=== PATIENT | male | born 1935 | race Caucasian/White ===

== ENCOUNTER 2022-10-23 23:33 | Emergency (ER) | payer MEDICARE, OTHER, SELFPAY ==
[2022-10-23 23:41] VITALS: PULSE 63; RESP 22; O2SAT 100
--- NOTE | 2022-10-23 23:42 | DI.RAD.S_ITS ---
PROCEDURE: XR CHEST 1V INDICATIONS: chest pain TECHNIQUE: One view of the chest was acquired. COMPARISON: None. FINDINGS: Surgical changes and devices: None. Lungs and pleura: There are scattered patchy indistinct airspace opacities bilaterally. No pleural effusions or pneumothorax. Mediastinum: Mediastinal contours appear normal. Heart size is normal. Bones and chest wall: No suspicious bony lesions. Overlying soft tissues appear unremarkable. IMPRESSION: 1. Scattered indistinct airspace opacities bilaterally are nonspecific but suggestive of pneumonia. Dictated by: Alonso Lan M.D. on 10/24/2022 at 1:01 Approved by: Alonso Lan M.D. on 10/24/2022 at 1:02
[2022-10-23 23:43] VITALS: BP 201/95; PULSE 62; RESP 18; O2SAT 99
[2022-10-23 23:44] VITALS: BP 201/95; PULSE 65; RESP 16; TEMP 36.8; O2SAT 100; BMI 25.8
[2022-10-23 23:53] LABS: INR 0.9 (0.9-1.3)
--- NOTE | 2022-10-23 23:53 | ED.CHESTPAIN ---
HPI - Chest Pain General Chief Complaint: Chest Pain Stated Complaint: Chest pain Time Seen by Provider: 10/23/22 23:53 Source: patient Mode of arrival: Ambulatory Limitations: no limitations History of Present Illness HPI narrative: 87-year-old male nonsmoker with noncontributory medical history presents with his in the chief complaint of short episodes stabbing retrosternal chest pain over the course of the day. Denies any obvious provocation but seems to think that getting up and moving around helps his symptoms. He denies associated symptoms or cardiac equivalent such as dizziness, weakness or lightheadedness. He denies nausea, vomiting or unexplained diaphoresis. He states he exercises every morning and denies any exertional symptoms or exercise intolerance. He denies unexplained diaphoresis or fatigue. He is had no recent travel, injuries, history of blood clot or cancer. He denies any association with eating or drinking. He is had no change in medications or diet. He is asymptomatic on arrival Related Data Previous Rx's Medication Instructions Recorded pantoprazole 40 mg tablet,delayed 40 mg PO DAILY #30 tabs 10/24/22 release (Protonix) Review of Systems Review of Systems Narrative: GENERAL: Denies chills, fatigue, malaise, fever, sweats. HEENT: Denies sinus pain, ear pain, sore throat, difficulty swallowing, dizziness. RESPIRATORY: Denies dyspnea, cough, wheezing, hemoptysis, sputum. CARDIOVASCULAR: See HPI GASTROINTESTINAL: Denies nausea, vomiting, abdominal pain, diarrhea, constipation, melena. : Denies dysuria, frequency, incontinence, hematuria, urinary retention. MUSCULOSKELETAL: denies weakness, joint pain, or bony pain SKIN: Denies rash, skin lesions, or other NEUROLOGIC: Denies weakness, headache, numbness, change in speech, confusion, seizures, incoordination. PSYCHIATRIC: No concerning psychosocial issues. 12 point review of systems is negative except for those stated above Patient History Social History Smoking Status: Never smoker Smoking Status: Never smoker Substance Use Type: does not use Exam Narrative Exam Narrative: GENERAL: [87] year old patient appears stated age. Well-developed patient, in mild distress. HEAD: Atraumatic. Normocephalic. EYES: Pupils equal round and reactive. Extraocular motions intact. No scleral icterus. No injection or drainage. ENT: Nose without bleeding, purulent drainage. Throat without erythema, tonsillar hypertrophy or exudate. Airway patent. NECK: Trachea midline. Non tender CARDIOVASCULAR: Regular rate and rhythm without murmurs, gallops, or rubs. RESPIRATORY: Clear to auscultation. Breath sounds equal bilaterally. No wheezes, rales, or rhonchi. GASTROINTESTINAL: Abdomen soft, non-tender, nondistended. EXTREMITIES: No edema or joint tenderness. BACK: Nontender without deformity or crepitance. No flank tenderness. NEURO: AOx3. SKIN: No rash or erythema of visible areas Initial Vital Signs Initial Vital Signs: Vital Signs Pulse Rate 63 10/23/22 23:41 Respiratory Rate 22 10/23/22 23:41 Pulse Oximetry 100 10/23/22 23:41 Course Orders Ordered: ED Orders 10/23/22 23:40 Complete Blood Count AUTO DIFF Stat Comprehensive Metabolic Panel Stat Lipase Stat Magnesium Stat Partial Thromboplastin Time Stat Prothrombin Time INR Stat Troponin & CK Cardiac Panel Stat 10/23/22 23:42 XR chest 1V Stat EKG-12 Lead Stat 10/24/22 02:38 D Dimer Stat 10/24/22 02:48 Troponin & CK Cardiac Panel Stat 10/24/22 03:16 CT angio chest PE protocol Stat Discontinued Medications Aspirin (Aspirin 81 Mg Chew Tab) 324 mg PO NOW ONE Stop: 10/23/22 23:43 Last Admin: 10/23/22 23:47 Dose: Not Given Documented By: PREMA Vital Signs Vital signs: Vital Signs - 8 hr 10/23/22 23:44 10/23/22 23:41 10/23/22 23:43 Temperature 98.2 F Pulse Rate 65 63 Respiratory Rate 16 22 Blood Pressure 201/95 H 201/95 H Pulse Oximetry 100 100 Oxygen Delivery Method Room Air 10/23/22 23:43 10/24/22 00:00 10/24/22 00:00 Temperature 97.7 F Pulse Rate 62 61 Respiratory Rate 18 23 Blood Pressure 165/78 H Pulse Oximetry 99 99 Oxygen Delivery Method 10/24/22 02:37 10/24/22 06:18 Temperature Pulse Rate 57 L 54 L Respiratory Rate 14 16 Blood Pressure 178/83 H 156/74 H Pulse Oximetry 97 Oxygen Delivery Method Room Air MDM - Chest Pain Lab Data Result diagrams: 10/23/22 23:40 10/23/22 23:40 Labs: Lab Results 10/23/22 10/23/22 10/23/22 Range/Units 23:40 23:40 23:40 WBC 9.2 (4.5-11.0) X10^3/uL RBC 4.69 (4.5-5.9) X10^6/uL Hgb 14.6 (13.5-17.5) g/dL Hct 43.0 (41-53) % MCV 91.7 (80-100) fL MCH 31.1 (26-34) PG MCHC 33.9 (30-36) % RDW 13.8 (11.6-14.8) % Plt Count 223 (150-400) X10^3/uL Neut % (Auto) 47.4 L (50-75) % Lymph % (Auto) 38.9 (25-40) % Kinney % (Auto) 8.3 (3-14) % Eos % (Auto) 3.8 (2-4) % Baso % (Auto) 1.6 (0-2) % Neut # (Auto) 4400 (5437-7616) /uL Lymph # (Auto) 3600 (2624-1505) /uL Kinney # (Auto) 800 (0-900) /uL Eos # (Auto) 400 (0-450) /uL Baso # (Auto) 100 (0-100) /uL PT 10.0 L (10.1-12.7) SECONDS INR 0.9 (0.9-1.3) APTT 30 (26-36) SECONDS D-Dimer (<500) ng/ml Sodium 138 (137-145) mmol/L Potassium 4.2 (3.4-5.1) mmol/L Chloride 100 (98-107) mmol/L Carbon Dioxide 31 (22-32) mmol/L BUN 21 H (9-20) mg/dL Creatinine 1.31 H (0.66-1.25) mg/dL Estimated GFR 53 L (>60) mL/min BUN/Creatinine Ratio 16.0 (6-22) Glucose 103 (80-110) mg/dL Calcium 9.5 (8.4-10.2) mg/dL Magnesium 2.3 (1.6-2.3) mg/dL Total Bilirubin 0.4 (0.2-1.3) mg/dL AST 26 (17-59) IU/L ALT 19 (<50) IU/L Alkaline Phosphatase 104 (38-126) U/L Total Creatine Kinase 129 (55-170) U/L CK-MB (CK-2) 1.84 (<2.37) ng/mL CK-MB (CK-2) Rel Index 1.4 L (1.5-5.0) % Troponin I < 0.012 (0.01-0.034) ng/mL Total Protein 7.4 (6.3-8.2) g/dL Albumin 4.2 (3.5-5.0) g/dL Globulin 3.2 (1.7-4.1) g/dL Albumin/Globulin Ratio 1.3 (1.0-2.8) Lipase 120 (23-300) U/L 10/23/22 10/24/22 Range/Units 23:40 02:48 WBC (4.5-11.0) X10^3/uL RBC (4.5-5.9) X10^6/uL Hgb (13.5-17.5) g/dL Hct (41-53) % MCV (80-100) fL MCH (26-34) PG MCHC (30-36) % RDW (11.6-14.8) % Plt Count (150-400) X10^3/uL Neut % (Auto) (50-75) % Lymph % (Auto) (25-40) % Kinney % (Auto) (3-14) % Eos % (Auto) (2-4) % Baso % (Auto) (0-2) % Neut # (Auto) (3744-8370) /uL Lymph # (Auto) (9352-9993) /uL Kinney # (Auto) (0-900) /uL Eos # (Auto) (0-450) /uL Baso # (Auto) (0-100) /uL PT (10.1-12.7) SECONDS INR (0.9-1.3) APTT (26-36) SECONDS D-Dimer 1146 H (<500) ng/ml Sodium (137-145) mmol/L Potassium (3.4-5.1) mmol/L Chloride (98-107) mmol/L Carbon Dioxide (22-32) mmol/L BUN (9-20) mg/dL Creatinine (0.66-1.25) mg/dL Estimated GFR (>60) mL/min BUN/Creatinine Ratio (6-22) Glucose (80-110) mg/dL Calcium (8.4-10.2) mg/dL Magnesium (1.6-2.3) mg/dL Total Bilirubin (0.2-1.3) mg/dL AST (17-59) IU/L ALT (<50) IU/L Alkaline Phosphatase (38-126) U/L Total Creatine Kinase 121 (55-170) U/L CK-MB (CK-2) 1.53 (<2.37) ng/mL CK-MB (CK-2) Rel Index 1.3 L (1.5-5.0) % Troponin I < 0.012 (0.01-0.034) ng/mL Total Protein (6.3-8.2) g/dL Albumin (3.5-5.0) g/dL Globulin (1.7-4.1) g/dL Albumin/Globulin Ratio (1.0-2.8) Lipase (23-300) U/L Imaging Data CT scan - chest: Radiologist's Impression: No PE, PTX, or pneumonia MDM Narrative Medical decision making narrative: Multiple causes of chest pain considered including IN, PE, pneumothorax, pneumonia, aortic dissection, and pleurisy. Patient reports no radiation, no diaphoresis, no provocation with exertion, and no vomiting Patient's symptoms improved over duration of stay with above-stated therapies. Findings and discharge diagnosis discussed with patient/family followed by verbalization of understanding Return precautions discussed with patient/family whom verbalize understanding. Discharge Plan Departure Patient Disposition: Home Clinical Impression: Atypical chest pain Instructions: DI for Atypical Chest Pain Activity Restrictions/Additional Instructions: *You have been diagnosed with [ atypical chest pain. As we discussed your history and physical exam are very reassuring and labs, imaging and EKG would suggest against emergent conditions such as heart attack, blood clot or pneumonia.] *What to do: *Please continue to take your regular medications as directed. [ New medication prescriptions sent to your pharmacy: [ ] [x ] New medication written as a paper prescription [ ] No new medications given *Please follow up with your primary care provider in 2-3 days, call for an appointment. Let them know you were seen in the Emergency Department and that we ask that you be seen in follow up. We will electronically transmit a record of today's note if your PCP is in our system *If you do not have a primary care provider please contact the [facility] Resource line at [phone]. They will ask some questions about your medical history and help get you set up with a doctor in the community. *Return to Emergency Department if you should have any new, worsening or concerning symptoms, such as [fever greater than 101 F, shaking chills, worsening pain, persistent vomiting or other bothersome symptoms] Prescriptions: New pantoprazole [Protonix] 40 mg tablet,delayed release (DR/EC) 40 mg PO DAILY Qty: 30 0RF
[2022-10-23 23:56] LABS: Add Manual Diff / Slide Review NO; Basophils Absolute Auto 100 /uL (0-100); Basophils Percent Auto 1.6 % (0-2); Eosinophils Absolute Auto 400 /uL (0-450); Eosinophils Percent Auto 3.8 % (2-4); Hemoglobin 14.6 g/dL (13.5-17.5); Lymphocytes Absolute Auto 3600 /uL (1100-4500); Lymphocytes Percent Auto 38.9 % (25-40); Mean Corpuscular HGB Conc 33.9 % (30-36); Mean Corpuscular Hemoglobin 31.1 PG (26-34); Mean Corpuscular Volume 91.7 fL (80-100); Monocytes Absolute Auto 800 /uL (0-900); Monocytes Percent Auto 8.3 % (3-14); Neutrophils Absolute Auto 4400 /uL (1500-7000); Neutrophils Percent Auto 47.4 % (50-75); PTT Partial Thromboplastin Tim 30 SECONDS (26-36); Platelet Count 223 X10^3/uL (150-400); Red Blood Cell Count 4.69 X10^6/uL (4.5-5.9); Red Cell Distribution Width 13.8 % (11.6-14.8); White Blood Cell Count 9.2 X10^3/uL (4.5-11.0)
[2022-10-23 23:57] LABS: Alanine Aminotransferase 19 IU/L (<50); Albumin 4.2 g/dL (3.5-5.0); Albumin Globulin Ratio 1.3 (1.0-2.8); Alkaline Phosphatase 104 U/L (38-126); Aspartate Aminotransferase 26 IU/L (17-59); Bilirubin Total 0.4 mg/dL (0.2-1.3); Blood Urea Nitrogen 21 mg/dL (9-20); Calcium 9.5 mg/dL (8.4-10.2); Carbon Dioxide 31 mmol/L (22-32); Chloride 100 mmol/L (98-107); Creatine Kinase 129 U/L (55-170); Estimated Glomerular Filt Rate 53 mL/min (>60); Globulin 3.2 g/dL (1.7-4.1); Glucose 103 mg/dL (80-110); Lipase 120 U/L (23-300); Magnesium 2.3 mg/dL (1.6-2.3); Potassium 4.2 mmol/L (3.4-5.1); Sodium 138 mmol/L (137-145); Total Protein 7.4 g/dL (6.3-8.2)
[2022-10-24] VITALS: BP 165/78; PULSE 61; RESP 23; TEMP 36.5; O2SAT 99
[2022-10-24 00:08] LABS: Troponin I < 0.012 ng/mL (0.01-0.034)
[2022-10-24 00:12] LABS: CKMB % Relative Index 1.4 % (1.5-5.0); Creatine Kinase MB 1.84 ng/mL (<2.37); HEMOLYSIS 27 (0-50)
[2022-10-24 02:37] VITALS: BP 178/83; PULSE 57; RESP 14
[2022-10-24 02:58] LABS: D Dimer 1146 ng/ml (<500)
[2022-10-24 03:07] LABS: Creatine Kinase 121 U/L (55-170)
--- NOTE | 2022-10-24 03:16 | DI.CT.S_ITS ---
PROCEDURE: CT ANGIO CHEST PE PROTOCOL INDICATIONS: chest pain, SOB, Critical Dimer TECHNIQUE: After the administration of intravenous contrast, 2 mm thick sections acquired from the pulmonary apices to the posterior costophrenic angles. 3-dimensional maximum intensity projection (MIP) coronal and sagittal reformats were then acquired through the thorax. For radiation dose reduction, the following was used: automated exposure control, adjustment of mA and/or kV according to patient size. COMPARISON: [facility], CR, XR CHEST 1V, 10/23/2022, 23:49. FINDINGS: Image quality: Excellent. Pulmonary arteries: Pulmonary arteries are normal in size, and demonstrate no intraluminal filling defects to suggest central pulmonary embolism. Lungs and pleura: There are numerous pleural nodules/plaques bilaterally; some nodules are calcified. No acute pulmonary opacity. No pleural effusions or pneumothorax. Central and peripheral airways are patent. Mediastinum: Heart size is normal, without pericardial effusion. Mild coronary artery calcification. There are mildly enlarged mediastinal or hilar lymph nodes. For example, there is a 1.0 x 1.4 cm subcarinal lymph node. A 1.3 cm hilar lymph node is identified. Thoracic aorta is normal in caliber and enhancement. There is a small hiatal hernia. There is concentric thickening at the gastroesophageal junction. Bones and chest wall: No suspicious bony lesions. Ribs and thoracic spine appear intact throughout. There is a heterogeneous mass in left thyroid lobe measuring 1.9 cm. No axillary or supraclavicular adenopathy. Abdomen: There is left adrenal thickening. A 0.9 cm left adrenal nodule is present. IMPRESSION: 1. No evidence for pulmonary embolism. 2. There are numerous pleural nodules and plaques bilaterally. Some nodules are calcified. Recommend clinical correlation for asbestos exposure. Cannot rule out pleural neoplasm such as mesothelioma or metastatic disease. If clinically indicated, PET-CT would be helpful. 3. Mild mediastinal lymphadenopathy. 4. A 1.9 cm heterogeneous left thyroid nodule. Recommend thyroid ultrasound for follow-up evaluation. 5. Small hiatal hernia. There is concentric thickening at the gastroesophageal junction. EGD is recommended for follow-up evaluation. 6. Mild coronary artery calcification consistent with coronary artery atherosclerosis. No significant discrepancy with the shift nurse manager radiology preliminary report. The final result was discussed with Dr. Smith. Dictated by: Sofia Oreilly M.D. on 10/24/2022 at 7:46 Approved by: Sofia Oreilly M.D. on 10/24/2022 at 7:57
[2022-10-24 03:19] LABS: Troponin I < 0.012 ng/mL (0.01-0.034)
[2022-10-24 03:22] LABS: CKMB % Relative Index 1.3 % (1.5-5.0); Creatine Kinase MB 1.53 ng/mL (<2.37)
[2022-10-24 06:18] VITALS: BP 156/74; PULSE 54; RESP 16; O2SAT 97
[2022-10-24 07:24] VITALS: BP 175/88; PULSE 75; RESP 16; O2SAT 100
== END 2022-10-24 07:25 | disposition home or self-care (01) ==
PROVIDERS: Emergency Provider Emergency Medicine
DX: R07.89 Other chest pain (principal); Z79.899 Other long term (current) drug therapy
CPT/HCPCS: 36415; 71045; 71275; 80053; 82550; 82553; 83690; 83735; 84484; 85025; 85379; 85610; 85730; 93005; 99284; Q9967

== ENCOUNTER 2023-01-11 09:07 | Emergency (ER) | payer MEDICARE, OTHER, SELFPAY ==
[2023-01-11 09:13] VITALS: BP 160/86; PULSE 68; RESP 16; TEMP 36.9; O2SAT 98; BMI 26.6
--- NOTE | 2023-01-11 09:13 | DI.RAD.S_ITS ---
PROCEDURE: XR KNEE RT 3V INDICATIONS: patella swollen, painful, hit on metal TECHNIQUE: 3 views of the knee were acquired. COMPARISON: None. FINDINGS: Bones: No fractures or dislocations. No suspicious bony lesions. There is mild medial femorotibial joint space narrowing seen, with associated remodeling changes including subchondral sclerosis and osteophyte formation along the jointline. On the sunrise view, there is moderate patellofemoral joint space narrowing seen. Osteophyte formation can be seen along the margins of the patella. Soft tissues: Prepatellar soft tissue swelling is seen. There is a small joint effusion. No suspicious soft tissue calcifications. IMPRESSION: Prepatellar soft tissue swelling with a small joint effusion. Degenerative changes are seen, which are worst involving the patellofemoral joint. If it would be helpful for clinical management decision making, please consider a dedicated, scheduled knee MRI for further evaluation (assuming that there is no contraindication). Dictated by: Dileep Purvis M.D. on 01/11/2023 at 8:33 Approved by: Dileep Purvis M.D. on 01/11/2023 at 8:34
--- NOTE | 2023-01-11 11:30 | ED.LOWEXIN ---
HPI - Extremity Injury (Lower) <Christen Palmer PA-C - Last Filed: 01/11/23 13:05> General Chief Complaint: Extremity Injury, Lower Stated Complaint: foot pain/injury Time Seen by Provider: 01/11/23 11:30 History of Present Illness HPI Narrative: 87-year-old male presents with concern for right knee injury. Patient states that he ran his knee into a metal bar on Thursday. He said it was very painful when it 1st happened but he was able to go about his day and his usual activities he even went for a walk, he states he normally does calisthenics every day and hikes frequently. On Thursday he also felt fine and he did is calisthenic routine which includes jumping up and down multiple times. He and his were driving up to their home locally on Thursday and as he was driving and operating the foot pedals he realized he was having knee pain. Then overnight on Thursday night he started having worsening pain he describes it as a stabbing type pain that is worse when he bends his knee and better when he keeps it straight. He states he is never had any problems with this knee or previous injuries and he just had his physical exam and was told that he has the body of a 57-year-old. He did not do any compression elevation icing or stay off of it after the initial injury. He denies numbness or tingling of the affected extremity, weakness or any other symptoms. Related Data Previous Rx's Medication Instructions Recorded pantoprazole 40 mg tablet,delayed 40 mg PO DAILY #30 tabs 10/24/22 release (Protonix) Review of Systems <Christen Palmer PA-C - Last Filed: 01/11/23 13:05> Review of Systems Narrative: Unremarkable except as noted in the HPI Patient History <Christen Palmer PA-C - Last Filed: 01/11/23 13:05> Social History Smoking Status: Never smoker Smoking Status: Never smoker Substance Use Type: does not use Exam <Christen Palmer PA-C - Last Filed: 01/11/23 13:05> Narrative Exam Narrative: GENERAL: 87 year old patient appears much younger than stated age. Healthy, well-appearing Well-developed patient, in mild distress. HEAD: Atraumatic. Normocephalic. EYES: Pupils equal round and reactive. Extraocular motions intact. No scleral icterus. No injection or drainage. ENT: Nose without bleeding, purulent drainage. Airway patent. NECK: Trachea midline. Non tender CARDIOVASCULAR: Regular rate and rhythm without murmurs, gallops, or rubs. RESPIRATORY: Clear to auscultation. Breath sounds equal bilaterally. No wheezes, rales, or rhonchi. GASTROINTESTINAL: Abdomen , nondistended. EXTREMITIES: Strong pedal pulses. The affected right knee has swelling about the patella and an abrasion on the anterior aspect of the patella without significant erythema or sensitive skin. Patient has increased pain about the patella with active flexion at the knee, but no increase in pain with passive flexion. Anterior and posterior drawer are negative. Medial joint lines are nontender. No other edema or joint tenderness. BACK: Nontender without deformity or crepitance. No flank tenderness. NEURO: AOx3. SKIN: No rash or erythema of visible areas Initial Vital Signs Initial Vital Signs: Vital Signs Temperature 98.4 F 01/11/23 09:13 Pulse Rate 68 01/11/23 09:13 Respiratory Rate 16 01/11/23 09:13 Blood Pressure 160/86 H 01/11/23 09:13 Pulse Oximetry 98 01/11/23 09:13 Oxygen Delivery Method 01/11/23 09:13 <DO Helen Montes Last Filed: 01/11/23 18:41> Initial Vital Signs Initial Vital Signs: Vital Signs Temperature 98.4 F 01/11/23 09:13 Pulse Rate 68 01/11/23 09:13 Respiratory Rate 16 01/11/23 09:13 Blood Pressure 160/86 H 01/11/23 09:13 Pulse Oximetry 98 01/11/23 09:13 Oxygen Delivery Method 01/11/23 09:13 Course <Christen Palmer PA-C - Last Filed: 01/11/23 13:05> Orders Ordered: ED Orders 01/11/23 09:13 XR knee RT 3V Stat Vital Signs Vital signs: Vital Signs - 8 hr 01/11/23 11:39 Pulse Rate 68 Respiratory Rate 18 Blood Pressure 123/74 Pulse Oximetry 99 Oxygen Delivery Method Room Air <DO Helen Montes Last Filed: 01/11/23 18:41> Orders Ordered: ED Orders 01/11/23 09:13 XR knee RT 3V Stat Vital Signs Vital signs: Vital Signs - 8 hr 01/11/23 11:39 Pulse Rate 68 Respiratory Rate 18 Blood Pressure 123/74 Pulse Oximetry 99 Oxygen Delivery Method Room Air MDM - Extremity Injury (Lower) <Christen Palmer PA-C - Last Filed: 01/11/23 13:05> Differential Diagnosis Differential diagnosis: Likely acute internal derangement of knee and other (bone bruise, sprain, strain, traumatic effusion) Medical Records Medical records narrative: I reviewed the patient's medical records Imaging Data Extremity x-ray #1: My Impression: I agree with radiologist's interpretation Radiologist's Impression: [address] [address] XRay Report Signed Patient: Yohannes Martin MR#: [id number] : 1935 Acct:[id number] Age/Sex: 87 / M Date of Service: 01/11/23 Loc: ED Accession Number: [id number] ?? Procedure: XR knee RT 3V Ordering Provider: Dariana Barbosa D.O. PROCEDURE:? XR KNEE RT 3V ? INDICATIONS:? patella swollen, painful, hit on metal ? TECHNIQUE:? 3 views of the knee were acquired.? ? COMPARISON:? None. ? FINDINGS:? ? Bones:? No fractures or dislocations.? No suspicious bony lesions.? ? There is mild medial femorotibial joint space narrowing seen, with associated remodeling changes including subchondral sclerosis and osteophyte formation along the jointline.? ? On the sunrise view, there is moderate patellofemoral joint space narrowing seen. Osteophyte formation can be seen along the margins of the patella. ? Soft tissues:? Prepatellar soft tissue swelling is seen.? There is a small joint effusion.? No suspicious soft tissue calcifications.? ? ? IMPRESSION:? Prepatellar soft tissue swelling with a small joint effusion. ? Degenerative changes are seen, which are worst involving the patellofemoral joint.? ? If it would be helpful for clinical management decision making, please consider a dedicated, scheduled knee MRI for further evaluation (assuming that there is no contraindication).? Dictated by: Dileep Purvis M.D. on 01/11/2023 at 8:33 ? ? Approved by: Dileep Purvis M.D. on 01/11/2023 at 8:34?? Treatment and disposition Shared decision making:: shared decision making was used in this patient's treatment and plan in the emergency department as well as discussion follow-up plan. MDM Narrative Medical decision making narrative: Well-appearing 87-year-old male presents with concern for right knee pain after hitting his knee against a metal bar on Thursday morning, proceeding with normal daily activities until it began to be painful Thursday afternoon. Exam today is not suggestive of infectious process, suspect that the patient had minor trauma that worsened with increased swelling and pain 2nd to not resting it and treating it appropriately after the initial injury. X-rays today are obtained and not suggestive of fracture. 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 Patient was placed in a knee brace to keep his leg straight as this is position of comfort for him. He is advised to stay off of it as much as possible, declines crutches, is using his 's walker a little bit, but advised to stay off of his leg, use compression rest ice and elevation monitor for persistent or worsening symptoms, consider seeing orthopedics or reimaging if he is not improving in 7-10 days. Return precautions provided, follow-up plan discussed, all questions answered. Discharge Plan Departure Patient Disposition: Home Clinical Impression: Pain and swelling of right knee, Traumatic effusion of knee joint Instructions: DI for Knee Pain Activity Restrictions/Additional Instructions: Thank you for letting us be part of her care today in the emergency department. Your x-rays did show some joint space narrowing but this is something that is chronic and some arthritic changes but we do not see a new fracture, you do have some swelling present and a small effusion or fluid collection likely related to the trauma you sustained on Thursday. As we discussed you should wear the knee brace keep your leg straight as that is the position of comfort for you, do not do your calisthenic exercises or hiking for the next 10-14 days, you can use elevation rest ice and compression to help with pain as well as Tylenol and (ibuprofen if your kidneys are good). If you are having persistent pain and despite careful treatment of your knee your pain is not improving or it is worsening he should definitely get re-evaluated you may want to consider seeing orthopedics and if it is not getting better in 10-14 days a repeat x-ray or possibly more advanced imaging may be warranted. There is no evidence of an emergent or life threatening illness at this time, but follow up with your doctor in 1-2 days is recommended nonetheless to continue to rule out serious underlying causes of your symptoms. Please call the office for an appointment. Please return to the Emergency Department for any worsening or persistent symptoms. Please take medications as directed. Prescriptions: No Action pantoprazole [Protonix] 40 mg tablet,delayed release (DR/EC) 40 mg PO DAILY Qty: 30 0RF Stand Alone Forms: Patient Portal/API <Dariana Barbosa DO - Last Filed: 01/11/23 18:41> Cosign ED Attending Stellaature Attestation: I was immediately available in the department for consultation. Documentation has been reviewed.
[2023-01-11 11:39] VITALS: BP 123/74; PULSE 68; RESP 18; O2SAT 99
--- NOTE | 2023-01-11 12:18 | PC.NURSE ---
Pt ambulated with walker independently, slow and steady gait.
== END 2023-01-11 12:58 | disposition home or self-care (01) ==
PROVIDERS: Emergency Provider Student in an Organized Health Care Education/Training Program
DX: M25.461 Effusion, right knee (principal); M25.561 Pain in right knee; W22.8XXA Striking against or struck by other objects, initial encounter
CPT/HCPCS: 73562; 99283